=== PATIENT | female | born 1985 | race Two or more races ===

== ENCOUNTER 2016-04-19 07:27 | Emergency (ER) | payer OTHER ==
[~2016-04-19] VITALS: Ht 167.6 cm; Wt 74.8 kg
[2016-04-19 08:21] LABS: BASOPHILS % (AUTO) 0.6 % (0.0-2.0); DIFF TOTAL % 100 %; EOSINOPHILS # (AUTO) 0.1 /CMM (0.0-0.7); EOSINOPHILS % (AUTO) 1.5 % (0.0-6.0); HEMATOCRIT 38 % (33-45); HEMOGLOBIN 12.4 g/dL (11.5-14.8); LYMPHOCYTES # (AUTO) 1.2 /CMM (0.8-4.8); MEAN CORPUSCULAR HEMOGLOBIN 30 PG (26.0-33.0); MEAN CORPUSCULAR HGB CONC 33 g/dl (31.0-36.0); MEAN CORPUSCULAR VOLUME 90 fL (82-100); MONOCYTES # (AUTO) 0.3 /CMM (0.1-1.30); MONOCYTES % (AUTO) 6.7 % (2.0-12.0); NEUTROPHILS # (AUTO) 2.3 /CMM (1.8-8.9); NEUTROPHILS % (AUTO) 60.2 % (43.0-81.0); PLATELET COUNT (AUTO) 292 /CMM (150-450); RED BLOOD CELL COUNT(AUTO) 4.19 MIL/uL (4.0-5.2); WHITE BLOOD COUNT (AUTO) 3.7 K/uL (4.3-11.0)
[2016-04-19 08:45] LABS: TROPONIN I < 0.017 ng/mL (0.00-0.056)
[2016-04-19 09:04] LABS: ALANINE AMINOTRANSFERASE 19 U/L (12-78); ALBUMIN 3.6 g/dL (3.4-5.0); ANION GAP 12 (5-14); ASPARTATE AMINOTRANSFERASE 17 U/L (15-37); BILIRUBIN,TOTAL 0.3 mg/dL (0.2-1.0); CALCIUM, SERUM 8.8 mg/dL (8.5-10.1); CARBON DIOXIDE 27 mmol/L (21-32); CHLORIDE 106 mmol/L (98-107); CREATININE 0.8 mg/dL (0.6-1.3); GFR 84 mL/min (>60); GLUCOSE 91 mg/dL (74-106); POTASSIUM 3.8 mmol/L (3.5-5.1); SODIUM SERUM 141 mmol/L (136-145); TOTAL PROTEIN, SERUM 7.1 g/dL (6.4-8.2); UREA NITROGEN, BLOOD 15 mg/dL (7-18)
[2016-04-19] MEDS ORDERED: CT SWABBABLE VALVE TRANS SET 1 EA INFUS.SET MC ONE (09:57)
[2016-04-19] MEDS ORDERED: IV NS 0.9% 250 ML IV ONE (09:57)
[2016-04-19] MEDS ORDERED: IOHEXOL-350 100 ML VIAL IV ONE (09:57)
[2016-04-19] MEDS ORDERED: IOHEXOL-300 100 ML VIAL IV ONE (09:57)
[2016-04-19 12:59] VITALS: BP 145/68
== END 2016-04-19 13:00 | disposition home or self-care (01) ==
LOC: ER 07:31
DX: R07.9 Chest pain, unspecified (principal); M79.662 Pain in left lower leg; Z87.442 Personal history of urinary calculi
CPT/HCPCS: 36415; 71010; 71275; 80053; 84484; 85025; 85378; 93005; 93971; 99285; A4606; J7050; Q9967 ×2; Z7610